=== PATIENT | male | born 1960 | race Caucasian/White ===

== ENCOUNTER → 2018-03-08 | Outpatient (CLI) | payer MEDICARE | LOC: MHCPAIN 14:02 | DX: G89.29 Other chronic pain (principal); M47.817 Spondylosis without myelopathy or radiculopathy, lumbosacral region; M53.3 Sacrococcygeal disorders, not elsewhere classified; M48.061 Spinal stenosis, lumbar region without neurogenic claudication | CPT/HCPCS: G0463 ==

== ENCOUNTER → 2018-03-24 | Outpatient (CLI) | payer MEDICARE | LOC: MHCPAIN 14:50 | DX: M47.817 Spondylosis without myelopathy or radiculopathy, lumbosacral region (principal); M46.96 Unspecified inflammatory spondylopathy, lumbar region ==

== ENCOUNTER → 2018-04-18 | Outpatient (CLI) | payer MEDICARE | LOC: MHCPAIN 09:59 | DX: M54.16 Radiculopathy, lumbar region (principal) ==

== ENCOUNTER → 2018-04-26 | Outpatient (CLI) | payer MEDICARE | LOC: MHCPAIN 14:27 | DX: G89.29 Other chronic pain (principal); M47.817 Spondylosis without myelopathy or radiculopathy, lumbosacral region; M53.3 Sacrococcygeal disorders, not elsewhere classified | CPT/HCPCS: G0463 ==

== ENCOUNTER → 2018-10-14 | Outpatient (REF) ==
[2018-10-14 09:09] LABS: PSA-TOTAL 0.31 ng/mL (0-4)
[2018-10-14 09:22] LABS: THYROID STIMULATING HORMONE 2.25 uIU/mL (0.465-4.680)
== END ==
LOC: ZLAB.WCH 08:24
PROVIDERS: Internal Medicine
DX: Z01.89 Encounter for other specified special examinations (principal)
CPT/HCPCS: G0103